=== PATIENT | female | born 1945 | race Caucasian/White ===

== ENCOUNTER 2018-04-30 07:56 | Day surgery (SDC) | payer MEDICARE, OTHER, MEDICAID ==
--- NOTE | 2018-04-22 06:15 | HISTORY AND PHYSICAL ---
DATE OF SERVICE: COLONOSCOPY H AND P HISTORY OF PRESENT ILLNESS: The patient is a 72-year-old white female referred for surveillance colonoscopy due to past history of colon polyps. She last underwent colonoscopy 2 years ago, at which time she had evidence for mild diverticular disease and 2 diminutive sessile polyps. One was removed from the rectosigmoid junction, which was hyperplastic, and the other larger polyp were removed from the distal ascending colon, was a tubular adenoma. In the interval, she had a friend who had been told she can go to a longer screening colonoscopy interval over four years and she ended up succumbing to colon cancer. The patient reports no changes in her health history. She has had no surgery over the past 2 years. Denies any bowel habit change and has noted no melena or bright red blood per rectum. Weight, she has gained 10 pounds over the last 2 years per our office scales. PAST MEDICAL HISTORY: Significant for longstanding obesity with type 2 diabetes mellitus and reported fatty liver disease. Several years ago, she underwent liver biopsy that reported stage I fibrotic change felt to be due to fatty liver. She has history of hypertension and hyperlipidemia. MEDICATIONS ON ADMISSION: Include Victoza 1.8 grams daily, metformin 1000 mg b.i.d., atorvastatin 40 mg daily, quinapril HCT 20/25 daily, gabapentin 800 mg t.i.d., glucosamine 1500 mg 2 times daily, Jardiance 25 mg daily, gemfibrozil 600 mg b.i.d. and fish oil 1000 mg daily. FAMILY HISTORY: She is not aware of any family history for colon cancer. Her mother at the age of 78 secondary to atherosclerotic vascular heart disease. Father in his 70s secondary to chronic obstructive pulmonary disease with longstanding smoking history. SOCIAL HISTORY: The patient has no past drinking or smoking history. She is a [employer] and would not accept blood products under any circumstance per her report. PHYSICAL EXAMINATION: GENERAL: Reveals a pleasant obese white female, who appears to be in no acute distress. VITAL SIGNS: Heart rate was 78 and regular. Blood pressure 130/76, weight 275.2 pounds. HEENT: Unremarkable. She has a Mallampati class 3 oropharyngeal configuration with no evidence for erythema. NECK: Revealed no JVD, adenopathy or bruits. CHEST: Clear to auscultation. CARDIOVASCULAR: Reveals a regular rate and rhythm without murmur, S3 or S4. ABDOMEN: Obese, nontender. Unable to evaluate for organomegaly due to obesity. Bowel sounds positive. EXTREMITIES: Reveal no cyanosis or clubbing or edema. ASSESSMENT AND PLAN: The patient is set up for surveillance colonoscopy due to past history of adenomatous colonic polyps on 04/23/2018. Prep instructions with split dose Colyte were given and questions were answered. I thank you for the referral of this pleasant lady. He did indicate that the patient was seen in the office on 04/19/[address] Paulino as well as Dr. Shelby self will need copies of this report. Job ID: [id number] DocumentID: [id number] Dictated Date: 04/19/2018 11:53:44 Marketing Manager Health Communications Date: 04/19/2018 12:41:12 Dictated By: MEDHAT KINSEY MD
[~2018-04-30] VITALS: Ht 170.2 cm; Wt 124.7 kg
[~2018-04-30 07:56] MED LIST: ASPI-586 PO; ATOR40TA70 PO; BIOT10005 PO; CALC-794 PO; EMPA25TA PO; GABA600T2 PO; GABA800T2 PO; GEMF600T4 PO; GLIP10TA13 PO; LIRA0.6P SQ; MAGN200T PO; METF-399 PO; MULT-974 PO; OXYB10TA PO; QUIN1TAB PO; UBID10CA8 PO
--- NOTE | 2018-04-30 08:02 | Pre-Op Note & Conscious Sedat ---
Pre-Operative Progress Note H&P Reviewed The H&P was reviewed, patient examined and no changes noted. Date H&P Reviewed: Apr 30, 2018 Time H&P Reviewed: 08:02 Conscious Sedation Pre-Proced ASA Class: 3 Airway Mallampati Classification: ([place] appropriate class) I. II. III, IV Lungs Heart ASA score ASA 1: a normal healthy patient ASA 2: a patient with a mild systemic disease (mid diabetes, controlled hypertension, obesity ASA 3: a patient with a severe systemic disease that limits activity (angina , COPD, prior Myocardial infarction) ASA 4: a patient with an incapacitating disease that is a constant threat to life (CHF, renal failure) ASA 5: a moribund patient not expected to survive 24 hrs. (ruptured aneurysm) ASA 6: a declared brain patient whose organs are being harvested. For emergent operations, add the letter E after the classification Grade 3 Sedation Plan: Analgesia, Amnesia, Plan communicated to team members, Discussed options with patient/fam, Discussed risks with patient/fam Note The patient is an appropriate candidate to undergo the planned procedure, sedation, and anesthesia. The patient immediately re-assessed prior to indication. MEDHAT KINSEY MD Apr 30, 2018 08:02
[2018-04-30] MEDS ORDERED: D5 LR IV SOLUTION 1,000 ML IV ONE (08:08)
[2018-04-30] MEDS ORDERED: D5 LR IV SOLUTION 1,000 ML IV STA (08:08)
[2018-04-30] MEDS ORDERED: MIDAZOLAM 2 MG/2 ML (VERSED) VIAL IVP ONE (08:15)
[2018-04-30] MEDS ORDERED: fentaNYL INJECTION 100 MCG/2 ML AMP IVP ONE (08:15)
[2018-04-30] MEDS ORDERED: LIDOCAINE JELLY 2% (XYLOCAINE) 5 ML TUBE MM PRN (08:15)
[2018-04-30 08:22] VITALS: BP 157/81
[2018-04-30] MEDS ORDERED: MIDAZOLAM 2 MG/2 ML (VERSED) VIAL ONE (08:38)
[2018-04-30] MEDS ORDERED: fentaNYL INJECTION 100 MCG/2 ML AMP ONE (08:38)
[2018-04-30] MEDS ORDERED: LIDOCAINE JELLY 2% (XYLOCAINE) 5 ML TUBE ONE (08:38)
[2018-04-30 09:45] VITALS: BP 139/63
[2018-04-30 10:15] VITALS: BP 141/62
[2018-04-30 10:26] LABS: CALCIUM 8.7 MG/DL (8.5-10.1); CREATININE SERUM 1.09 MG/DL (0.60-1.30); POTASSIUM 4.3 MMOL/L (3.6-5.0)
[2018-04-30] MEDS ORDERED: QUIN40TA14 PO (10:50)
[2018-04-30 11:05] VITALS: BP 141/62
--- NOTE | 2018-04-30 11:20 | OPERATIVE REPORT ---
DATE OF SERVICE: COLONOSCOPY SUMMARY INDICATION FOR THE PROCEDURE: Surveillance colonoscopy due to the past history of colon polyps. DESCRIPTION OF PROCEDURE: The patient was placed in left lateral decubitus position. Prior to undergoing colonoscopy, digital rectal evaluation was performed. Anal sphincter tone was normal. The perianal reflexes were intact. No abnormalities were noted on digital inspection of the anal canal or distal rectal vault. The colonoscope was then inserted into the rectum under direct visualization and advanced to the cecum. The cecum was identified by identification of the ileocecal valve and the cecal strap. Photographic documentation was obtained. The patient tolerated the procedure well. Quality of the prep was good. FINDINGS: There was no evidence for internal or external hemorrhoids and the rectum was unremarkable. Several small sigmoid diverticulum were present without evidence for diverticulitis. No other sigmoid colonic abnormalities were appreciated. The descending colon, splenic flexure, transverse colon and hepatic flexure were unremarkable. Two small proximal ascending colonic polyps were noted, one adjacent to the fold just distal to the ileocecal valve and the other about 3 to 4 folds bordering on the mid ascending colon were present. Both were biopsied and ablated with no subsequent blood loss using the hot forceps. Again, noted was a small proximal ascending colonic lipoma. The cecum and the colon were unremarkable. ASSESSMENT: Two diminutive polyps were noted and subsequently biopsied and ablated using hot forceps, one measuring 2 to 3 mm in size, the other one 3 to 4 mm in size from the proximal ascending colon. Mild diverticular disease confined to the sigmoid colon was present in addition to small ascending colonic lipoma was noted as well. As long as there are no surprises on histopathology report, we will advocate repeat surveillance colonoscopy in 1 to 2 years. I thank you for the referral of this pleasant lady. Job ID: [id number] DocumentID: [id number] Dictated Date: 04/30/2018 10:14:40 Collection Technician Date: 04/30/2018 11:20:42 Dictated By: MEDHAT KINSEY MD
--- NOTE | 2018-04-30 12:26 | OPERATIVE REPORT ---
DATE OF SERVICE: ADDENDUM TO COLONOSCOPY SUMMARY The patient reported that she had 5 or 6 hours worth of diarrhea after her PEG prep and she felt weak and was concerned about dehydration, so she presented to the emergency room the night before her colonoscopy. She was given some IV fluids and told that she was dehydrated and her magnesium level was low. She brought her blood test with her and her sodium was slightly low at 132 and her magnesium level was 1.5. She received magnesium IV in the emergency room. We repeated her labs and her sodium was lower at 126, but magnesium level was up to 2. BUN and creatinine were normal at 16 and 1.09. The patient was advised to hold her quinapril HCT so as not to further aggravate hyponatremia and in 48 hours, start plain quinapril 40 mg daily. Thirty tabs were called out to her pharmacy. She is advised to follow up with Dr. Bethea in one week to repeat a basic metabolic panel for followup of hyponatremia and blood pressure. She was discharged with stable vital signs voicing no complaints. Job ID: [id number] DocumentID: [id number] Dictated Date: 04/30/2018 11:31:25 Concrete Truck Driver Date: 04/30/2018 12:25:34 Dictated By: MEDHAT KINSEY MD MTDD
== END 2018-04-30 11:05 | disposition home or self-care (01) ==
LOC: ENDO 07:56
PROVIDERS: ATTEND Internal Medicine
DX: Z09 Encounter for follow-up examination after completed treatment for conditions other than malignant neoplasm (principal); D12.2 Benign neoplasm of ascending colon; K57.30 Diverticulosis of large intestine without perforation or abscess without bleeding; D17.5 Benign lipomatous neoplasm of intra-abdominal organs; E11.9 Type 2 diabetes mellitus without complications; K76.0 Fatty (change of) liver, not elsewhere classified; E66.9 Obesity, unspecified; I10 Essential (primary) hypertension; E78.5 Hyperlipidemia, unspecified; E86.0 Dehydration; E87.1 Hypo-osmolality and hyponatremia; Z79.84 Long term (current) use of oral hypoglycemic drugs; Z79.899 Other long term (current) drug therapy; Z68.41 Body mass index [BMI] 40.0-44.9, adult
CPT/HCPCS: 36415; 80048; 82962; 83735

== ENCOUNTER → 2018-12-10 | Outpatient (CLI) | payer MEDICARE, OTHER, MEDICAID ==
[~2018-12-10] MED LIST changes: -GABA600T2 PO; +GABA800T10 PO; -GABA800T2 PO; +GBPN600T PO; -GEMF600T4 PO; +GEMF600T8 PO; +QUIN40TA14 PO
--- NOTE | 2018-12-10 15:36 | Diagnostic Imaging Report ---
PROCEDURE: MR imaging of the brain without contrast. TECHNIQUE: Multiplanar, multisequence MR imaging of the brain was performed without contrast. INDICATION: Memory loss. COMPARISON: None. FINDINGS: Moderate nonspecific T2 hyperintensities in the supratentorial white matter. Mild generalized cerebral and cerebellar parenchymal volume loss. No restricted water diffusion. No hemosiderin deposition. Normal morphology including the major midline structures, sella, posterior fossa and cerebellar pontine angle. No hydrocephalus or extra-axial fluid collections. Normal intracranial flow voids. Postoperative changes in the right globe. There is mild mucosal thickening in the floor of the left maxillary sinus. The mastoids are unremarkable. Normal bone marrow signal. IMPRESSION: 1. 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 2. Age-appropriate generalized parenchymal volume loss. 3. No acute intracranial MRI findings. Dictated by: Dictated on workstation # [id number]
== END ==
LOC: RAD 14:40
PROVIDERS: ATTEND Internal Medicine
DX: G93.89 Other specified disorders of brain (principal); R90.82 White matter disease, unspecified; R41.3 Other amnesia
CPT/HCPCS: 70551

== ENCOUNTER 2019-03-09 05:48 | Outpatient (CLI) | payer MEDICARE, OTHER, MEDICAID ==
[~2019-03-09] VITALS: Ht 170.2 cm; Wt 124.7 kg
[2019-03-09] MEDS ORDERED: QUIN1TAB25 PO (14:29)
== END 2019-03-09 14:32 | disposition home or self-care (01) ==
LOC: PREOP 05:48
PROVIDERS: ATTEND Specialist
DX: Z01.818 Encounter for other preprocedural examination (principal)

== ENCOUNTER 2019-03-11 09:00 | Day surgery (SDC) | payer MEDICARE, OTHER, MEDICAID ==
[~2019-03-11] VITALS: Ht 170.2 cm; Wt 124.7 kg
[~2019-03-11 09:00] MED LIST changes: +QUIN1TAB25 PO
[2019-03-11 09:10] VITALS: BP 138/70
[2019-03-11] MEDS ORDERED: MOXIFLOXACIN OPHTH SOLN 5 MG/ML 0.3 ML SYRINGE OP ONE (09:15)
[2019-03-11] MEDS ORDERED: TIMOLOL MALEATE 0.5% 5 ML (TIMOPTIC) BTL OU PRN (09:15)
[2019-03-11] MEDS ORDERED: POVIDONE (BETADINE) OPHTH SOLN 5% 30 ML OP ONE (09:15)
[2019-03-11] MEDS ORDERED: LIDOCAINE PF 1% 2 ML AMP IR PRN (09:15)
[2019-03-11] MEDS: TETRACAINE 0.5% OPHTH SOLN 4 ML BTL (SINGLE DOSE ONLY) OU PRN ×4 (09:20→09:37)
[2019-03-11] MEDS: PHENYLEPHRINE 10% OPHTH (NEO-SYN) 5 ML BTL OU SCH ×3 (09:27→09:37)
[2019-03-11] MEDS: CYCLOPENTOLATE 1% (CYCLOGYL) 2 ML DROPS OP SCH ×3 (09:27→09:37)
[2019-03-11] MEDS ORDERED: MIDAZOLAM 2 MG/2 ML (VERSED) VIAL ONE (09:57)
--- NOTE | 2019-03-11 09:57 | Ophthalmologist Pre-Op Note ---
Pre-Operative Progress Note H&P Reviewed The H&P was reviewed, patient examined and no changes noted. Date H&P Reviewed: Mar 11, 2019 Time H&P Reviewed: 09:57 Pre-Op Dx Cataract, Left Eye RIMMA KEITA MD Mar 11, 2019 09:57
--- NOTE | 2019-03-11 10:22 | Ophthalmology Operative Report ---
Cataract removal/placement IOL PREOPERATIVE DIAGNOSIS: Cataract Left Eye POSTOPERATIVE DIAGNOSIS: Cataract Left Eye PROCEDURE: Cataract removal and placement of posterior chamber implant, left eye SURGEON: Micheal Keita ANESTHESIA: Topical with sedation COMPLICATIONS: None ESTIMATED BLOOD LOSS: Minimal DESCRIPTION OF PROCEDURE: After proper informed consent was obtained, the patient, a 73 female, was taken to the Operating Room and the left eye was anesthetized with tetracaine. The left eye was then prepped and draped in the usual manner. A wire lid speculum was placed. A paracentesis was made at the left hand position. Preservative free lidocaine was injected into the anterior chamber followed by viscoelastic. A clear corneal incision was made in the temporal position. A capsulorrhexis was preformed and the central nuclear and cortical material were removed. The posterior capsule was polished and an Daryl 16.0 AU00T0 was placed into the capsular bag. The residual viscoelastic was aspirated and balanced saline solution was injected into the anterior chamber. Moxifloxacin was injected into the anterior chamber. The wound was checked and found to be water tight. The patient tolerated the procedure well without complications. MICHEAL KEITA MD Mar 11, 2019 10:22
[2019-03-11 10:30] VITALS: BP 136/57
[2019-03-11] MEDS ORDERED: acetaZOLAMIDE ER 500 MG CAP (DIAMOX SEQUELS) PO ONE (10:30)
--- NOTE | 2019-03-11 12:46 | Anesthesia-General Post-Op ---
MAC Patient Condition Mental Status/LOC: Same as Preop Cardiovascular: Satisfactory Nausea/Vomiting: Absent Respiratory: Satisfactory Pain: Controlled Complications: Absent Post Op Complications Complications None Follow Up Care/Instructions Patient Instructions None needed. Anesthesiology Discharge Order Discharge Order Patient is doing well, no complaints, stable vital signs, no apparent adverse anesthesia problems. No complications reported per nursing. VINCE PAK CRNA Mar 11, 2019 12:46
== END 2019-03-11 10:30 | disposition home or self-care (01) ==
LOC: SDC 09:00
PROVIDERS: ATTEND Specialist
DX: E11.36 Type 2 diabetes mellitus with diabetic cataract (principal); H25.12 Age-related nuclear cataract, left eye; E11.40 Type 2 diabetes mellitus with diabetic neuropathy, unspecified; I10 Essential (primary) hypertension; E78.5 Hyperlipidemia, unspecified; G47.33 Obstructive sleep apnea (adult) (pediatric); E66.01 Morbid (severe) obesity due to excess calories; Z79.84 Long term (current) use of oral hypoglycemic drugs; Z79.899 Other long term (current) drug therapy; Z68.41 Body mass index [BMI] 40.0-44.9, adult
CPT/HCPCS: 82962

== ENCOUNTER → 2019-06-13 | Outpatient (CLI) | payer MEDICARE, OTHER, MEDICAID ==
[2019-06-13 08:17] LABS: BASOPHILS % (AUTO) 0 % (0-10); EOSINOPHILS # (AUTO) 0.1 10^3/uL (0.0-0.3); EOSINOPHILS % (AUTO) 1 % (0-10); HEMATOCRIT 38 % (35-52); HEMOGLOBIN 12.7 G/DL (11.5-16.0); LYMPHOCYTES # (AUTO) 2.6 X 10^3 (1.0-4.0); LYMPHOCYTES % (AUTO) 35 % (12-44); MEAN CORPUSCULAR HEMOGLOBIN 30 PG (25-34); MEAN CORPUSCULAR HGB CONC 33 G/DL (32-36); MEAN CORPUSCULAR VOLUME 89 FL (80-99); MONOCYTES # (AUTO) 0.6 X 10^3 (0.0-1.0); MONOCYTES % (AUTO) 8 % (0-12); NEUTROPHILS # (AUTO) 4.2 X 10^3 (1.8-7.8); NEUTROPHILS % (AUTO) 56 % (42-75); PLATELET COUNT 200 10^3/uL (130-400); WHITE BLOOD COUNT 7.5 10^3/uL (4.3-11.0)
[2019-06-13 08:38] LABS: BILIRUBIN,TOTAL 0.4 MG/DL (0.1-1.0); CALCIUM 9.3 MG/DL (8.5-10.1); CREATININE SERUM 1.04 MG/DL (0.60-1.30); POTASSIUM 3.9 MMOL/L (3.6-5.0); TOTAL PROTEIN 7.1 GM/DL (6.4-8.2)
[2019-06-13 08:59] LABS: FREE T4 (FREE THYROXINE) 0.84 NG/DL (0.70-1.48)
--- NOTE | 2019-06-13 10:51 | Diagnostic Imaging Report ---
INDICATION: Routine screening. Comparison is made with prior mammogram 10/24/2015 and 10/17/2014. 2-D and 3-D bilateral screening mammography was performed with with a Computer Aided Detection (CAD) system. 3-D tomosynthesis was also performed and reviewed. FINDINGS: Scattered fibroglandular densities are identified bilaterally. Scattered benign-appearing parenchymal and vascular calcifications are identified bilaterally. No dominant mass or malignant appearing microcalcifications are seen. There is a benign nodule in the central left breast. Axillae are unremarkable. IMPRESSION: No mammographic features suspicious for malignancy are identified. ACR BI-RADS Category 2: Benign findings. Result letter will be mailed to the patient. Note: At least 10% of breast cancer is not imaged by mammography. Dictated by: Dictated on workstation # [id number]
== END ==
LOC: RAD 07:51
PROVIDERS: ATTEND Internal Medicine
DX: Z12.31 Encounter for screening mammogram for malignant neoplasm of breast (principal); Z00.00 Encounter for general adult medical examination without abnormal findings; E03.9 Hypothyroidism, unspecified; D64.9 Anemia, unspecified; R73.9 Hyperglycemia, unspecified; R77.0 Abnormality of albumin; E78.2 Mixed hyperlipidemia; E53.8 Deficiency of other specified B group vitamins
CPT/HCPCS: 36415; 77067; 80053; 80061; 82607; 82728; 82746; 83036; 83540; 84439; 84443; 85025

== ENCOUNTER → 2019-09-12 | Outpatient (CLI) | payer MEDICARE, OTHER, MEDICAID ==
[~2019-09-12] MED LIST changes: -OXYB10TA PO; +OXYB10TA2 PO
[2019-09-12 11:50] LABS: CARBON DIOXIDE 26 MMOL/L (21-32); CHLORIDE 101 MMOL/L (98-107); POTASSIUM 4.2 MMOL/L (3.6-5.0); SODIUM 140 MMOL/L (135-145)
[2019-09-12 11:51] LABS: BUN/CREATININE RATIO 22; CALCIUM 9.5 MG/DL (8.5-10.1); GFR ESTIMATED > 60; GLUCOSE 137 MG/DL (70-105)
== END ==
LOC: LAB FS 11:04
PROVIDERS: ATTEND Nurse Practitioner Family
DX: E11.9 Type 2 diabetes mellitus without complications (principal)
CPT/HCPCS: 36415; 80048

== ENCOUNTER → 2019-09-22 | Outpatient (CLI) | payer OTHER, MEDICAID ==
[2019-09-22 09:52] LABS: HEMOGLOBIN 13.8 G/DL (11.5-16.0); MEAN CORPUSCULAR HEMOGLOBIN 30 PG (25-34); WHITE BLOOD COUNT 6.7 10^3/uL (4.3-11.0)
[2019-09-22 09:53] LABS: BASOPHILS % (AUTO) 0 % (0-10); EOSINOPHILS # (AUTO) 0.1 10^3/uL (0.0-0.3); EOSINOPHILS % (AUTO) 2 % (0-10); HEMATOCRIT 42 % (35-52); LYMPHOCYTES # (AUTO) 2.1 X 10^3 (1.0-4.0); LYMPHOCYTES % (AUTO) 31 % (12-44); MEAN CORPUSCULAR HGB CONC 33 G/DL (32-36); MEAN CORPUSCULAR VOLUME 90 FL (80-99); MEAN PLATELET VOLUME 9.9 FL (7.4-10.4); MONOCYTES # (AUTO) 0.6 X 10^3 (0.0-1.0); MONOCYTES % (AUTO) 8 % (0-12); NEUTROPHILS # (AUTO) 3.9 X 10^3 (1.8-7.8); NEUTROPHILS % (AUTO) 59 % (42-75); PLATELET COUNT 229 10^3/uL (130-400); RED CELL DISTRIBUTION WIDTH 13.5 % (10.0-14.5)
[2019-09-22 10:04] LABS: POTASSIUM 4.3 MMOL/L (3.6-5.0)
[2019-09-22 10:05] LABS: ALBUMIN 4.1 GM/DL (3.2-4.5); BILIRUBIN,TOTAL 0.4 MG/DL (0.1-1.0); CALCIUM 9.5 MG/DL (8.5-10.1); CREATININE SERUM 1.12 MG/DL (0.60-1.30); TOTAL PROTEIN 7.3 GM/DL (6.4-8.2)
[2019-09-22 16:42] LABS: FREE T4 (FREE THYROXINE) 0.84 NG/DL (0.70-1.48)
== END ==
LOC: LAB FS 08:55
PROVIDERS: ATTEND Internal Medicine
DX: E11.65 Type 2 diabetes mellitus with hyperglycemia (principal); E03.9 Hypothyroidism, unspecified; E78.1 Pure hyperglyceridemia; E78.00 Pure hypercholesterolemia, unspecified
CPT/HCPCS: 36415; 80053; 80061; 83036; 84439; 84443; 85025

== ENCOUNTER → 2019-12-02 | Outpatient (CLI) | payer MEDICARE, OTHER, MEDICAID ==
[~2019-12-02] MED LIST changes: -OXYB10TA2 PO; +OXYB10TA29 PO
[2019-12-02 09:50] LABS: CALCIUM 9.5 MG/DL (8.5-10.1); CREATININE SERUM 0.92 MG/DL (0.60-1.30); POTASSIUM 4.3 MMOL/L (3.6-5.0)
== END ==
LOC: LAB FS 09:10
PROVIDERS: ATTEND Nurse Practitioner Family
DX: E11.9 Type 2 diabetes mellitus without complications (principal)
CPT/HCPCS: 36415; 80048

== ENCOUNTER → 2020-01-19 | Outpatient (CLI) | payer MEDICARE, OTHER, MEDICAID ==
[2020-01-19 12:58] LABS: CALCIUM 9.2 MG/DL (8.5-10.1); CREATININE SERUM 0.97 MG/DL (0.60-1.30); POTASSIUM 4.1 MMOL/L (3.6-5.0)
[2020-01-19 12:59] LABS: ALBUMIN 3.7 GM/DL (3.2-4.5); BILIRUBIN,TOTAL 0.4 MG/DL (0.1-1.0); TOTAL PROTEIN 6.8 GM/DL (6.4-8.2)
[2020-01-19 15:27] LABS: FREE T4 (FREE THYROXINE) 0.85 NG/DL (0.70-1.48)
== END ==
LOC: LAB FS 11:11
PROVIDERS: ATTEND Internal Medicine
DX: E78.00 Pure hypercholesterolemia, unspecified (principal); E78.1 Pure hyperglyceridemia; E11.65 Type 2 diabetes mellitus with hyperglycemia; E03.9 Hypothyroidism, unspecified
CPT/HCPCS: 36415; 80053; 82043; 82465; 83036; 84439; 84443; 84478

== ENCOUNTER → 2020-05-30 | Outpatient (CLI) | payer MEDICARE, MEDICAID ==
[2020-05-30 09:24] LABS: BASOPHILS % (AUTO) 0 % (0-10); EOSINOPHILS # (AUTO) 0.1 10^3/uL (0.0-0.3); EOSINOPHILS % (AUTO) 1 % (0-10); HEMATOCRIT 41 % (35-52); HEMOGLOBIN 13.5 G/DL (11.5-16.0); LYMPHOCYTES # (AUTO) 2.8 X 10^3 (1.0-4.0); LYMPHOCYTES % (AUTO) 31 % (12-44); MEAN CORPUSCULAR HEMOGLOBIN 30 PG (25-34); MEAN CORPUSCULAR HGB CONC 33 G/DL (32-36); MEAN CORPUSCULAR VOLUME 90 FL (80-99); MEAN PLATELET VOLUME 10.1 FL (7.4-10.4); MONOCYTES # (AUTO) 0.6 X 10^3 (0.0-1.0); MONOCYTES % (AUTO) 7 % (0-12); NEUTROPHILS # (AUTO) 5.5 X 10^3 (1.8-7.8); NEUTROPHILS % (AUTO) 61 % (42-75); PLATELET COUNT 245 10^3/uL (130-400); WHITE BLOOD COUNT 9.2 10^3/uL (4.3-11.0)
[2020-05-30 09:39] LABS: BILIRUBIN,TOTAL 0.3 MG/DL (0.1-1.0); CALCIUM 9.5 MG/DL (8.5-10.1); CREATININE SERUM 0.98 MG/DL (0.60-1.30); POTASSIUM 4.6 MMOL/L (3.6-5.0)
[2020-05-30 09:40] LABS: ALBUMIN 4.1 GM/DL (3.2-4.5); TOTAL PROTEIN 7.3 GM/DL (6.4-8.2)
[2020-05-30 15:07] LABS: FREE T4 (FREE THYROXINE) 0.81 NG/DL (0.70-1.48)
== END ==
LOC: LAB FS 08:52
PROVIDERS: ATTEND Internal Medicine
DX: Z13.6 Encounter for screening for cardiovascular disorders (principal); E03.9 Hypothyroidism, unspecified; E11.65 Type 2 diabetes mellitus with hyperglycemia; I10 Essential (primary) hypertension
CPT/HCPCS: 36415; 80053; 80061; 82043; 83036; 84439; 84443; 85025

== ENCOUNTER → 2020-06-18 | Outpatient (CLI) | payer MEDICARE, MEDICAID ==
[~2020-06-18] MED LIST changes: -QUIN1TAB25 PO
--- NOTE | 2020-06-19 10:09 | Diagnostic Imaging Report ---
INDICATION: Routine screening. Comparison is made with prior mammogram 06/13/2019 and 10/23/2015. 2-D and 3-D bilateral screening mammography was performed with CAD. Both breasts are heterogeneously dense, limiting the sensitivity of mammography. Benign parenchymal and vascular calcifications are again noted. No mass or malignant appearing microcalcifications are seen. Axillae are unremarkable. IMPRESSION: BI-RADS Category 2 No mammographic features suspicious for malignancy are identified. ACR BI-RADS Category 2: Benign findings. Result letter will be mailed to the patient. Note: At least 10% of breast cancer is not imaged by mammography. Dictated by: Dictated on workstation # [id number]
== END ==
LOC: RAD 15:15
PROVIDERS: ATTEND Internal Medicine
DX: Z12.31 Encounter for screening mammogram for malignant neoplasm of breast (principal)
CPT/HCPCS: 77063; 77067

== ENCOUNTER → 2021-07-09 | Outpatient (CLI) | payer MEDICARE, MEDICAID ==
[~2021-07-09] MED LIST changes: -GEMF600T8 PO; +GEMF600T88 PO
--- NOTE | 2021-07-09 19:43 | Diagnostic Imaging Report ---
INDICATION: Routine screening. COMPARISON is made with prior mammograms from 06/18/2020 and 06/13/2019. TECHNIQUE: 2-D and 3-D bilateral screening mammography was performed with CAD. Both breasts are heterogeneously dense, limiting the sensitivity of mammography. There are scattered benign calcifications. There are vascular calcifications are present. No mass or malignant-appearing microcalcifications are seen. Axillae are unremarkable. IMPRESSION: BI-RADS Category 2 No mammographic features suspicious for malignancy are identified. ACR BI-RADS Category 2: Benign findings. Result letter will be mailed to the patient. Note: At least 10% of breast cancer is not imaged by mammography. Dictated by: Dictated on workstation # [id number]
== END ==
LOC: RAD 13:12
PROVIDERS: ATTEND Internal Medicine
DX: Z12.31 Encounter for screening mammogram for malignant neoplasm of breast (principal)
CPT/HCPCS: 77063; 77067

== ENCOUNTER → 2022-07-10 | Outpatient (CLI) | payer MEDICARE, MEDICAID ==
[~2022-07-10] MED LIST changes: -QUIN40TA14 PO; +QUIN40TA34 PO
--- NOTE | 2022-07-10 18:30 | Diagnostic Imaging Report ---
INDICATION: Routine screening. COMPARISON: Prior mammograms from 07/09/2021 and 06/18/2020. EXAMINATION: 2D and 3D bilateral screening mammography was performed with CAD. The current study was also evaluated with a Computer Aided Detection (CAD) system. FINDINGS: Both breasts are heterogeneously dense, limiting the sensitivity of mammography. Benign parenchymal calcifications and vascular calcifications are again noted, bilaterally. No mass or malignant-appearing microcalcifications are seen. Axillae are unremarkable. IMPRESSION: No mammographic features suspicious for malignancy are identified. ACR BI-RADS Category 2: Benign findings. Result letter will be mailed to the patient. Note: At least 10% of breast cancer is not imaged by mammography. Dictated by: Dictated on workstation # [id number]
== END ==
LOC: RAD 10:53
PROVIDERS: ATTEND Internal Medicine
DX: Z12.31 Encounter for screening mammogram for malignant neoplasm of breast (principal)
CPT/HCPCS: 77063; 77067

== ENCOUNTER 2022-12-14 22:22 | Emergency (ER) | payer MEDICARE, MEDICAID ==
--- NOTE | 2022-12-14 22:34 | ED EENT ---
History of Present Illness General Stated Complaint: LEFT SWOLLEN EYE History of Present Illness Date Seen by Provider: Dec 14, 2022 Time Seen by Provider: 22:33 Initial Comments 77-year-old female with PMH of dementia, is here with complaints of left eye redness and purulent discharge with mild swelling to her eyelid, which began today afternoon. Denies foreign body, injury, fever and chills, blurry vision, pain. Patient is accompanied by her granddaughter who is also her employee benefits attorney. Allergies and Home Medications Allergies Coded Allergies: No Known Drug Allergies (Verified , 05/30/16) Patient Home Medication List Home Medication List Reviewed: Yes Atorvastatin Calcium (Atorvastatin Calcium) 40 Mg Tablet, 40 MG PO HS, (Reported) Entered as Reported by: MARIANN REYES on 05/22/15 09 Gabapentin (Gabapentin) 800 Mg Tablet, 800 MG PO QID, (Reported) Entered as Reported by: FLORA ANDERSON on 05/29/16 0855 Gemfibrozil (Gemfibrozil) 600 Mg Tablet, 600 MG PO DAILY, (Reported) Entered as Reported by: FLORA ANDERSON on 05/29/16 0855 Glipizide (Glipizide) 10 Mg Tablet, 10 MG PO BID, (Reported) Entered as Reported by: FLORA ANDERSON on 04/21/18 160 Liraglutide (Victoza 2-Lee) 0.6 Mg/0.1 Ml Pen.injctr, 1.8 MG SQ HS, (Reported) Entered as Reported by: MARIANN REYES on 05/22/15950 Metformin HCl (Metformin HCl) 1,000 Mg Tablet, 1,000 MG PO BID, (Reported) Entered as Reported by: MARIANN REYES on 05/22/15950 Multivitamin (Multi-Vitamin Daily) 1 Each Tablet, 1 EACH PO DAILY, (Reported) Entered as Reported by: MARIANN REYES on 05/22/15950 Oxybutynin Chloride (Oxybutynin Chloride ER) 10 Mg Tab.er.24, 10 MG PO BID, (Reported) Entered as Reported by: FLORA ANDERSON on 04/21/18 1602 Quinapril/Hydrochlorothiazide (Quinapril-Hctz 20-12.5 mg Tab) 1 Each Tablet, 1 EACH PO DAILY, (Reported) Entered as Reported by: FLORA ANDERSON on 03/09/19 1429 Review of Systems Review of Systems Constitutional: no symptoms reported Eyes: Drainage, Inflammation Ears: No Symptoms Reported Nose: no symptoms reported Mouth: no symptoms reported Throat: no symptoms reported Respiratory: no symptoms reported Cardiovascular: no symptoms reported Gastrointestinal: no symptoms reported Musculoskeletal: no symptoms reported Skin: no symptoms reported Neurological: No Symptoms Reported Hematologic/Lymphatic: No Symptoms Reported Immunological/Allergic: no symptoms reported Past Ctwgjdr-Psqpjs-Lhvcuy Hx Seasonal Allergies Seasonal Allergies: No Past Medical History Appendectomy, Hysterectomy, Tonsillectomy Sleep Apnea Currently Using CPAP: Yes Hypertension Reproductive Disorders: No Female Reproductive Disorders: Denies Sexually Transmitted Disease: No HIV/AIDS: No Polyps Arthritis Diabetes, Non-Insulin dep Cataract Visual Acuity : Eye Location: Left Vision Acuity Degree: 20/20 Physical Exam Vital Signs Vital Signs - First Documented 12/14/22 22:28 Pulse 80 Resp 18 B/P (MAP) 202/89 (126) Pulse Ox 100 O2 Delivery Room Air Height, Weight, BMI Height: 5'7.00" Weight: 275lbs. 0.0oz. 124.394558hj; 43.1 BMI Method: General Appearance: WD/WN, no apparent distress Eyes: left eye PERRL, left eye EOMI, left eye conjunctival inflammation (Purulent discharge seen, with crusting of eyelashes), left eye lid inflammation (No foreign body, very mild lip swelling) Neurologic/Psychiatric: no motor/sensory deficits, alert, oriented x 3 Skin: normal color Progress/Results/Core Measures Results/Orders My Orders Orders - REG SANCHEZ MD Erythromycin Ophth Oint (Erythromycin Op (12/14/22 23:07) Vital Signs/I&O 12/14/22 22:28 Pulse 80 Resp 18 B/P (MAP) 202/89 (126) Pulse Ox 100 O2 Delivery Room Air Progress Progress Note : Progress Note LEFT EYE CONJUNCTIVITIS: - Erythromycin ophthalmic ointment started in the ER, with prescription given for a larger tube. To be applied every 8 hours for the next 7 days. -Advised good hand hygiene -Follow-up with ophthalmology within the next 7 days -The patient was seen in the ED, and treated appropriately to presentation at a specific point in time. Patient is informed that there is a possibility that disease and illness can evolve and change in acuity rapidly or slowly after patient is discharged from the ER. Precautionary advice given to the patient for immediate return to ER if symptoms worsen or do not resolve, and to seek emergency care sooner rather than later. Pt also advised on the importance of PCP follow up and compliance with management and follow up plan with PCP and/or specialist, as this is part of the management plan. Pt verbally expressed understanding. Departure Impression Primary Impression: Acute conjunctivitis, left eye Qualified Codes: H10.32 - Unspecified acute conjunctivitis, left eye Disposition: HOME, SELF-CARE Condition: Stable Departure-Patient Inst. Referrals: AMBER SALOMON DO (PCP/Family) Primary Care Physician Patient Instructions: Conjunctivitis ([facility]) ED, How to Use Eye Drops and Eye Ointment ED Add. Discharge Instructions: - Erythromycin ophthalmic ointment started in the ER, with prescription given for a larger tube. To be applied every 8 hours for the next 7 days. -Advised good hand hygiene -Follow-up with ophthalmology within the next 7 days Scripts Erythromycin Base (Erythromycin Opthalmic Ointment) 5 Mg/Gram (0.5 %) Oint...g. 0 OP Q8H for 7 Days, #1 EA 1/ inch Prov: REG SANCHEZ MD 12/14/22 REG SANCHEZ MD Dec 14, 2022 22:34
[2022-12-14] MEDS ORDERED: ERYTHROMYCIN OPHTH OINT 1 GM (SINGLE USE) TUBE OP STA (23:07)
[2022-12-14] MEDS ORDERED: ERYT1OIN6 OP (23:13)
[2022-12-14 23:15] VITALS: BP 202/89
== END 2022-12-14 23:15 | disposition home or self-care (01) ==
LOC: EDUNIT# 22:22 → ER FS 22:25
DX: H10.32 Unspecified acute conjunctivitis, left eye (principal); Z28.310 Unvaccinated for COVID-19
CPT/HCPCS: 99281